=== PATIENT | female | born 1955 | race Caucasian/White ===

== ENCOUNTER → 2018-12-05 13:54 | Outpatient (CLI) | payer OTHER ==
--- NOTE | 2018-12-11 14:14 | ST ---
PATIENT:SRINIVAS LARKIN MEDICAL RECORD: [id number] SEX: F LOCATION:[facility] ORDER #: ADMISSION DATE: 12/05/18 AGE OF PATIENT: 63 REFERRING PHYSICIAN: INTERPRETING PHYSICIAN: LEWIS JUNIOR MD DATE OF SERVICE: 12/05/2018 PROCEDURE: Treadmill stress test. Exercised for 10 minutes on Miguel A protocol. Maximum heart rate 139 beats per minute, greater than 85% max predicted. No ECG changes of ischemia. No symptoms of ischemia. No blood pressure response to exercise. No arrhythmias noted. Good exercise tolerance for age. TRANSINT:[id number] Voice Confirmation ID: [id number] DOCUMENT ID: [id number] LEWIS JUNIOR MD at 1414 CC: [id number] DICTATION DATE: 12/10/18 1337 KRAFT DIGESTER OPERATOR: 12/10/18 1350 DEP CLI 12/05/[address] [id number]
== END | disposition home or self-care (01) ==
LOC: D.HCCARDIO 13:54
PROVIDERS: ATTEND Internal Medicine Interventional Cardiology
DX: R07.9 Chest pain, unspecified (principal)